=== PATIENT | female | born 1995 | race Caucasian/White ===

== ENCOUNTER 2017-06-28 23:50 | Emergency (ER) | payer BC, OTHER ==
[~2017-06-28] VITALS: Ht 154.9 cm; Wt 50.0 kg
[2017-06-29 00:01] VITALS: TEMP 36.5; Ht 154.9 cm; Wt 50.0 kg
[2017-06-29] MEDS ORDERED: BCPILLS PO (00:17)
[2017-06-29 00:28] VITALS: O2SAT 98
[2017-06-29 00:41] LABS: BUN/CREATININE RATIO 14.4 (10-20); CALCIUM 8.6 mg/dl (8.5-10.1); CREATININE 0.7 mg/dl (0.60-1.20); POTASSIUM 3.7 mmol/L (3.5-5.1)
[2017-06-29 01:15] LABS: BENZODIAZEPINE, URINE NEG (NEG); COCAINE,URINE NEG (NEG); PHENCYCLIDINE, URINE NEG (NEG)
--- NOTE | 2017-06-29 06:36 | EMERGENCY ROOM VISIT NOTE ---
History First contact with patient: 00:05 Chief Complaint: ALCOHOL OVERDOSE Stated Complaint: ALCOHOL OVERDOSE Nursing Triage Summary: PT was drinking this am around 1100, PT was very intoxicated and was carried to local EMS station, PT waited there several hrs, and is still stumbling with slurred speech. PT brought here by EMS, was able to walk to ED bed. History of Present Illness The patient is a 21 year old female who presents to the Emergency Room via EMS for alcohol intoxication. Per triage note, patient had been at a local EMS station earlier this afternoon and was visibly intoxicated at that time. She was watched there for several hours, and continued to have stumbling gait and slurring speech, so EMS brought her for further evaluation. Patient states she has not had a drink in over 6 hours. She denies use of any illicit drugs today, but does admit to use of "all of them" in the past. She denies any injuries, falls, headache, neck pain, chest pain, SOB, vomiting. Review of Systems Limited ROS due to intoxication. Social History Smoking Status: Current Every Day Smoker Current/Historical Medications Scheduled Control Pills ( Control Pills), 1 TAB PO DAILY Physical Exam Vital Signs Date Time Temp Pulse Resp B/P (MAP) Pulse Ox O2 Delivery O2 Flow Rate FiO2 06/29/17 09:37 84 16 114/71 98 Room Air 06/29/17 06:35 96 18 110/65 95 Room Air 06/29/17 06:25 99 15 110/65 96 Room Air 06/29/17 04:30 88 18 126/88 98 Room Air 06/29/17 03:22 100 18 119/69 98 Room Air 06/29/17 02:49 108 18 110/70 98 Room Air 06/29/17 00:34 120 18 117/83 98 Room Air 06/29/17 00:28 98 Room Air 06/29/17 00:28 98 Room Air 06/29/17 00:01 36.5 104 18 133/93 98 Room Air 06/29/17 00:00 117 Physical Exam VITALS - Vitals are noted on the nurse's note and reviewed by myself. Vital signs stable. GENERAL -alert and cooperative, in no acute distress, non-diaphoretic, well- developed well-nourished. The patient is visibly intoxicated. SKIN - The skin was without obvious lacerations, abrasions, or rashes. There is no tenting of the skin. Capillary reflex less than 2 seconds. HEENT - Normocephalic, atraumatic. PERRLA. EOMI. Conjunctiva with mild injection without icterus. Tympanic membranes without erythema or effusion bilaterally no hemotympanum. External auditory canals are clear. Nares patent bilaterally. No epistaxis. Oropharynx without erythema or exudate. Uvula midline. Oral mucosal moist. No lymphadenopathy. Neck is supple without cervical spine tenderness. HEART - Regular rate and rhythm without murmurs gallops or rubs. Peripheral pulses 2+. LUNGS - Clear to auscultation bilaterally without wheezes, rales or rhonchi. ABDOMEN - Positive bowel sounds x 4. Normal tympanic percussion. Soft, nontender, without masses or organomegaly. MUSCULOSKELETAL - Gross motor function of the upper and lower extremities intact. NEUROLOGIC - The patient is visibly intoxicated. Cranial nerves II through XII grossly intact. No pronator drift. No focal deficits appreciated. Medical Decision & Procedures Laboratory Results 06/29/17 00:03 Test 06/29/17 00:03 06/29/17 00:27 Anion Gap 6.0 mmol/L (3-11) Est Creatinine Clear Calc Drug Dose 95.1 ml/min Estimated GFR () 142.5 Estimated GFR (Non- 123.0 BUN/Creatinine Ratio 14.4 (10-20) Calcium Level 8.6 mg/dl (8.5-10.1) Ethyl Alcohol mg/dL 299.0 mg/dl (0-3) Urine Opiates Screen NEG (NEG) Urine Methadone, Qualitative NEG (NEG) Urine Barbiturates NEG (NEG) Urine Phencyclidine (PCP) Level NEG (NEG) Ur Amphetamine/Methamphetamine NEG (NEG) MDMA (Ecstasy) Screen NEG (NEG) Urine Benzodiazepines Screen NEG (NEG) Urine Cocaine Metabolite NEG (NEG) Urine Marijuana (THC) NEG (NEG) Medical Decision In the evaluation and treatment of this patient, the following differential diagnoses were considered: Hypoglycemia, Barbiturate Toxicity, Benzodiazepine Toxicity, Depression and Suicidality, Diabetic Ketoacidosis, Encephalitis, Ethylene Glycol Toxicity, Meningitis, Metabolic Acidosis, Opioid Toxicity, CVA, TIA, Intracranial Abnormality, Acute Psychosis, Amongst Others. Patient was seen and evaluated by myself. Given the patient's presentation and exam findings, I did elect to perform the above-mentioned workup. The patient presents today visibly intoxicated. Aspiration precautions were instituted and the patient was placed in the prone position. The patient was placed on the phototypesetting equipment monitor and pulse oximetry was monitored throughout the entire stay in the emergency department. Labs were collected. Patient's medical alcohol was found to be elevated at 299 mg/dL. Urine drug screen negative. After a lengthy stay in the Emergency Department the patient eventually was awoken and educated on today's visit, and was deemed appropriate for discharge. They were encouraged to refrain from heavy drinking. All labs and diagnostics were reviewed. Patient was discharged home in stable condition. Impression Primary Impression: Alcohol use with intoxication Departure Information Dispostion Home / Self-Care Condition GOOD Referrals No Doctor, Assigned (PCP) Patient Instructions ED Alcohol Intoxication, My [facility] Additional Instructions Do not drink any further alcohol today and avoid such excessive drinking in the future. Drink plenty of fluids today to stay hydrated. Follow-up with your PCP as needed.
[2017-06-29 09:37] VITALS: BP 114/71; PULSE 84; O2SAT 98
== END 2017-06-29 09:39 | disposition home or self-care (01) ==
LOC: C.EDB 23:53
DX: F10.920 Alcohol use, unspecified with intoxication, uncomplicated (principal); F17.210 Nicotine dependence, cigarettes, uncomplicated; Z79.3 Long term (current) use of hormonal contraceptives